=== PATIENT | female | born 1980 | race Caucasian/White ===

== ENCOUNTER 2016-06-17 11:06 | Emergency (ER) | payer BC ==
[~2016-06-17] VITALS: Ht 162.6 cm; Wt 71.4 kg
[~2016-06-17 11:06] MED LIST: MVI
[2016-06-17 11:09] VITALS: TEMP 98.5
[2016-06-17] MEDS ORDERED: KLONOPIN 0.5MG0.5 MG PO (11:17)
[2016-06-17] MEDS ORDERED: CELEXA40 MG PO (11:17)
[2016-06-17] MEDS ORDERED: TOPROL XL100 MG PO (11:18)
[2016-06-17 11:57] LABS: BASO # 0.1 (0.0-0.2); BASO % 0.9 % (0.0-2.0); EOS # 0.1 (0.0-0.7); EOS % 1.4 % (0-4.0); GRAN # 3.7 (1.4-6.5); GRAN % 57.5 % (42.2-75.2); HEMATOCRIT 41.7 % (37.0-47.0); HEMOGLOBIN 14.2 g/dl (12.5-16.0); LYMPH # 1.9 (1.2-3.4); LYMPH % 30.3 % (20.0-51.0); MEAN CELL VOLUME 91 fl (80.0-100.0); MEAN CORPUSCULAR HEMOGLOBIN 31 pg (27.0-31.0); MEAN CORPUSCULAR HGB CONC 34 g/dl (33.0-37.0); MEAN PLATELET VOLUME 12.6 fl (7.4-10.4); MONO # 0.6 (0.1-0.6); MONO % 9.4 % (1.7-9.3); PLATELET COUNT 142 K/mm3 (130-400); RED BLOOD COUNT 4.61 M/mm3 (4.10-5.30); REDCELL DISTRIBUTION WIDTH-CV 12.2 % (11.5-14.5); WHITE BLOOD COUNT 6.4 K/mm3 (4.8-10.8)
[2016-06-17 12:09] LABS: ADJUSTED CALCIUM 9.2 mg/dL (8.4-10.2); ALBUMIN 3.8 gm/dL (3.5-5.0); BILIRUBIN,TOTAL 0.6 mg/dL (0.0-1.0); CREATININE, serum 0.81 mg/dL (0.52-1.25); POTASSIUM 4.4 mmol/L (3.4-5.0); TOTAL PROTEIN 6.9 gm/dL (6.4-8.2)
[2016-06-17 12:26] LABS: PROLACTIN 17.7 ng/mL (3.0-18.6)
[2016-06-17 12:54] VITALS: BP 114/56; PULSE 70
== END 2016-06-17 13:12 | disposition home or self-care (01) ==
LOC: COL.ER 11:06
PROVIDERS: Family Medicine
DX: R55 Syncope and collapse (principal); I10 Essential (primary) hypertension
CPT/HCPCS: J7030

== ENCOUNTER 2019-10-28 05:18 | Emergency (ER) | payer BC ==
[~2019-10-28] VITALS: Ht 162.6 cm; Wt 65.9 kg
[2019-10-28 05:18] VITALS: TEMP 98.9
[~2019-10-28 05:18] MED LIST changes: +CELEXA40 MG PO; +KLONOPIN 0.5MG0.5 MG PO; +TOPAMAX 100MG100 M1 PO; +TOPROL XL100 MG PO; +ZONEGRAN25 MG PO
[2019-10-28 05:37] LABS: BASO % 0.9 % (0.0-2.0); EOS # 0.1 (0.0-0.7); EOS % 1.9 % (0-4.0); GRAN # 2.9 (1.4-6.5); GRAN % 61.4 % (42.2-75.2); HEMATOCRIT 42.1 % (37.0-47.0); HEMOGLOBIN 14.2 g/dl (12.5-16.0); LYMPH # 1.3 (1.2-3.4); LYMPH % 27.1 % (20.0-51.0); MEAN CELL VOLUME 90 fl (80.0-100.0); MEAN CORPUSCULAR HEMOGLOBIN 31 pg (27.0-31.0); MEAN CORPUSCULAR HGB CONC 34 g/dl (33.0-37.0); MEAN PLATELET VOLUME 12.9 fl (7.4-10.4); MONO # 0.4 (0.1-0.6); MONO % 8.5 % (1.7-9.3); PLATELET COUNT 140 K/mm3 (130-400); RED BLOOD COUNT 4.66 M/mm3 (4.10-5.30); REDCELL DISTRIBUTION WIDTH-CV 12.2 % (11.5-14.5)
[2019-10-28 05:41] LABS: ALBUMIN 4.1 gm/dL (3.5-5.0); BILIRUBIN,TOTAL 0.6 mg/dL (0.0-1.0); CALCIUM 9.1 mg/dL (8.4-10.2); CREATININE, serum 1.02 (0.52-1.25); MAGNESIUM 2.1 mg/dL (1.6-2.3); POTASSIUM 3.8 mmol/L (3.4-5.0)
[2019-10-28 06:49] LABS: COLLECTION METHOD CLEAN CATCH
[2019-10-28] MEDS ORDERED: TOPAMAX50 MG PO (06:55)
[2019-10-28 07:18] LABS: MUCOUS Present /lpf; PH 5 (5-8); SQUAMOUS EPITHELIAL 0-2 /hpf; URINE APPEARANCE Hazy; URINE BACTERIA None Seen /hpf; URINE BILIRUBIN Negative (NEGATIVE); URINE BLOOD 3+ (NEGATIVE); URINE COLOR Amber; URINE GLUCOSE Negative (NEGATIVE); URINE KETONE Negative (NEGATIVE); URINE LEUKOCYTE ESTERASE Negative (NEGATIVE); URINE NITRATE Negative (NEGATIVE); URINE PROTEIN(semi-quant) 1+ (NEGATIVE); URINE RBC >50 /hpf
[2019-10-28 07:45] VITALS: BP 113/71; PULSE 69
== END 2019-10-28 07:45 | disposition home or self-care (01) ==
LOC: COL.ER 05:18
PROVIDERS: Emergency Medicine
DX: G40.409 Other generalized epilepsy and epileptic syndromes, not intractable, without status epilepticus (principal); R19.7 Diarrhea, unspecified; F17.210 Nicotine dependence, cigarettes, uncomplicated
CPT/HCPCS: J7030

== ENCOUNTER 2020-07-27 05:30 | Emergency (ER) | payer BC ==
[~2020-07-27] VITALS: Ht 162.6 cm; Wt 65.0 kg
[~2020-07-27 05:30] MED LIST changes: +TOPAMAX50 MG PO
[2020-07-27 05:33] VITALS: TEMP 98.1
[2020-07-27 05:44] LABS: COLLECTION METHOD CLEAN CATCH
[2020-07-27 05:52] LABS: PH 7 (5-8); URINE APPEARANCE Hazy; URINE BACTERIA Rare /hpf; URINE BILIRUBIN Negative (NEGATIVE); URINE BLOOD Negative (NEGATIVE); URINE COLOR Yellow; URINE GLUCOSE Negative (NEGATIVE); URINE KETONE Negative (NEGATIVE); URINE LEUKOCYTE ESTERASE Trace (NEGATIVE); URINE NITRATE Negative (NEGATIVE); URINE PROTEIN(semi-quant) Negative (NEGATIVE); URINE RBC 0-2 /hpf; URINE UROBILINOGEN Negative (NEGATIVE)
[2020-07-27 05:55] LABS: BASO # 0.1 (0.0-0.2); BASO % 0.8 % (0.0-2.0); EOS # 0.1 (0.0-0.7); EOS % 1.8 % (0-4.0); GRAN # 3.7 (1.4-6.5); GRAN % 59.7 % (42.2-75.2); HEMATOCRIT 43.6 % (37.0-47.0); HEMOGLOBIN 14.6 g/dl (12.5-16.0); LYMPH # 1.8 (1.2-3.4); LYMPH % 28.1 % (20.0-51.0); MEAN CELL VOLUME 92 fl (80.0-100.0); MEAN CORPUSCULAR HEMOGLOBIN 31 pg (27.0-31.0); MEAN CORPUSCULAR HGB CONC 34 g/dl (33.0-37.0); MEAN PLATELET VOLUME 12.1 fl (7.4-10.4); MONO # 0.6 (0.1-0.6); MONO % 9.3 % (1.7-9.3); PLATELET COUNT 174 K/mm3 (130-400); RED BLOOD COUNT 4.76 M/mm3 (4.10-5.30); REDCELL DISTRIBUTION WIDTH-CV 12.6 % (11.5-14.5)
[2020-07-27 06:08] LABS: ALBUMIN 4.2 gm/dL (3.5-5.0); BILIRUBIN,TOTAL 0.2 mg/dL (0.0-1.0); CALCIUM 9.3 mg/dL (8.4-10.2); CREATININE, serum 0.89 (0.52-1.25); TOTAL PROTEIN 7.3 gm/dL (6.4-8.2)
[2020-07-27 06:23] VITALS: BP 124/84; PULSE 78
== END 2020-07-27 06:28 | disposition home or self-care (01) ==
LOC: COL.ER 05:30
PROVIDERS: Emergency Medicine
DX: G40.909 Epilepsy, unspecified, not intractable, without status epilepticus (principal); Z32.02 Encounter for pregnancy test, result negative; Z88.8 Allergy status to other drugs, medicaments and biological substances; Z91.040 Latex allergy status; Z88.5 Allergy status to narcotic agent